=== PATIENT | female | born 1995 | race Caucasian/White ===

== ENCOUNTER 2016-09-03 10:42 | Emergency (ER) | payer OTHER ==
[~2016-09-03] VITALS: Ht 160 cm; Wt 90.0 kg
[2016-09-03 10:43] VITALS: BP 132/76; PULSE 82; RESP 16; TEMP 98.6; O2SAT 98
--- NOTE | 2016-09-03 11:35 | PD ---
HPI Chief Complaint: Related Problem Time Seen by Provider: 11:10 Travel History International Travel<30 days: No Contact w/Intl Traveler<30days: No Traveled to known affect area: No History of Present Illness HPI Patient doesn't complain of spotting. Patient states she is 6 weeks and began noticing some [id number] spotting when she wipes. Patient reports abdominal cramping yesterday but none today. Patient denies any fevers , nausea, vomiting, loss or change in bowel or bladder, or doing anything for this. Patient states she has an appointment with an OB September 20, but has not seen an OB yet. Patient reports she is taking vitamins. [facility] Past Medical History Medical History: Denies Significant Hx ?: LMP: 07/31/16 Social History Alcohol Use: No Tobacco Use: No Substance Use: No Allergies-Medications (Allergen,Severity, Reaction): Coded Allergies: No Known Allergies (Unverified , 09/03/16) Reported Meds & Prescriptions Reported Meds & Active Scripts Active Reported Plus Iron 29-1 mg ( Vit-Iron Carbonyl) 1 Tab Tab 1 Tab PO DAILY Review of Systems Except as stated in HPI: all other systems reviewed are Neg Physical Exam Narrative GENERAL: Well-developed, overly nourished, in no acute distress, and non-ill appearing. SKIN: Focused skin assessment warm and dry. HEAD: Atraumatic. Normocephalic. EYES: Pupils equal and round. EOMI. No scleral icterus. No injection or drainage. ENT: No nasal bleeding or discharge. Mucous membranes pink and moist. NECK: Trachea midline. Supple. No nuclear rigidity. CARDIOVASCULAR: Regular rate and rhythm. No murmur appreciated. RESPIRATORY: No accessory muscle use. No respiratory distress. Clear to auscultation. Breath sounds equal bilaterally. GASTROINTESTINAL: Abdomen soft, non-tender, nondistended. Hepatic and splenic margins not palpable. Normal bowel sounds 4. No pulsatile mass. GENITOURINARY: Normal external genitalia without lesions or erythema. Vaginal vault without blood or drainage. Cervical os was closed without drainage. No cervical motion tenderness. Uterus nontender and nonenlarged. Bilateral adnexa nontender without masses. Exam was performed presence of staffing associateAYLA Saldana at all times. MUSCULOSKELETAL: No obvious deformities. No clubbing. No cyanosis. No edema. Full range of motion. NEUROLOGICAL: Awake and alert. No obvious cranial nerve deficits. Motor grossly within normal limits. Normal speech. PSYCHIATRIC: Appropriate mood and affect; insight and judgment normal. Data Data Last Documented VS Vital Signs Date Time Temp Pulse Resp B/P Pulse Ox O2 Delivery O2 Flow Rate FiO2 09/03/16 10:43 98.6 82 16 132/76 98 Orders Beta Hcg (Quant/Titer) (09/03/16 11:13) Complete Blood Count With Diff (09/03/16 11:13) Basic Metabolic Panel (Bmp) (09/03/16 11:13) Complete Rh (09/03/16 11:13) Urinalysis - C+S If Indicated (09/03/16 11:13) Gc And Chlamydia Pcr (09/03/16 11:40) Wet Prep Profile (09/03/16 11:40) Ed Poc Ultrasound (09/03/16 ) Us Pelvis (Ques Pr/Ect)W Trans (09/03/16 ) Labs Laboratory Tests Test 09/03/16 09/03/16 11:30 11:50 White Blood Count 10.2 TH/MM3 Red Blood Count 5.00 MIL/MM3 Hemoglobin 13.5 GM/DL Hematocrit 39.6 % Mean Corpuscular Volume 79.3 FL Mean Corpuscular Hemoglobin 26.9 PG Mean Corpuscular Hemoglobin 34.0 % Concent Red Cell Distribution Width 16.0 % Platelet Count 295 TH/MM3 Mean Platelet Volume 8.0 FL Neutrophils (%) (Auto) 71.9 % Lymphocytes (%) (Auto) 19.3 % Monocytes (%) (Auto) 6.5 % Eosinophils (%) (Auto) 1.4 % Basophils (%) (Auto) 0.9 % Neutrophils # (Auto) 7.4 TH/MM3 Lymphocytes # (Auto) 2.0 TH/MM3 Monocytes # (Auto) 0.7 TH/MM3 Eosinophils # (Auto) 0.1 TH/MM3 Basophils # (Auto) 0.1 TH/MM3 CBC Comment DIFF FINAL Differential Comment Sodium Level 137 MEQ/L Potassium Level 3.5 MEQ/L Chloride Level 104 MEQ/L Carbon Dioxide Level 24.5 MEQ/L Anion Gap 9 MEQ/L Blood Urea Nitrogen 7 MG/DL Creatinine 0.72 MG/DL Estimat Glomerular Filtration 103 ML/MIN Rate Random Glucose 118 MG/DL Calcium Level 9.1 MG/DL Human Chorionic Gonadotropin, 4344 MIU/ML Quant Blood Type B POSITIVE Rho(D) Type POSITIVE Urine Color YELLOW Urine Turbidity HAZY Urine pH 7.5 Urine Specific [place] 1.024 Urine Protein 30 mg/dL Urine Glucose (UA) 300 mg/dL Urine Ketones NEG mg/dL Urine Occult Blood NEG Urine Nitrite NEG Urine Bilirubin NEG Urine Urobilinogen LESS THAN 2.0 MG/DL Urine Leukocyte Esterase NEG Urine RBC 1 /hpf Urine WBC 1 /hpf Urine Squamous Epithelial 6 /hpf Cells Urine Bacteria OCC /hpf Urine Mucus FEW /lpf Microscopic Urinalysis Comment CULT NOT INDICATED Clue Cells (Wet Prep) NONE SEEN Vaginal Trichomonas (Wet Prep) NONE SEEN Vaginal Yeast (Wet Prep) NONE SEEN Chlamydia trachomatis DNA NOT DETECTED (PCR) Neisseria gonorrhoeae DNA NOT DETECTED (PCR) [facility] Medical Decision Making Medical Screen Exam Complete: Yes Emergency Medical Condition: Yes Interpretation(s) Ultrasound read by the radiologist shows: 1. The examination demonstrates a very early intrauterine gestation. The gestational sac and pole are too small to provide accurate gestational age. The patient will need followup ultrasound to ensure viability. 2. No free fluid is seen within the pelvis. The ovaries are unremarkable in appearance. Differential Diagnosis Ectopic , threatened , UTI, normal menstrual cycle, other Narrative Course Patient presented with vaginal bleeding and lower abdominal pain and the test was positive. Ultrasound was performed and there is evidence of a developing uterine . There is no evidence to suggest ectopic , nor cervicitis, PID or torsion at this time. There was no evidence to support colitis, diverticulitis, obstruction, abdominal or femoral herniation , volvulus, early appendicitis, or hernial incarceration or strangulation at this time. Patient is stable and no clinical evidence of anemia. There is no RH incompatibility. Possibility of a threatened was discussed with the patient. The patient was instructed to follow up with OB within 2-3 days, for repeat blood work and possible repeat ultrasound, and was given contact information. She was given warnings to return if bleeding worsened, passed tissue, felt faint or passed out, fever, worsening pain, inability to tolerate fluids, or as needed. The patient agreed with plan. Patient in no obvious distress upon re-evaluation. All pertinent laboratory/ Radiology result(s) discussed with patient/family. Discussed patient with Dr. Lay, who saw and evaluated the patient and is in agreement with plan of care and disposition. Any questions/concerns in reference to patient diagnosis/ condition discussed and clarified prior to patient's discharge. Reinforced sheer importance of close follow up with patient's primary physician or primary care clinic. Instructed patient to return to ED immediately, if symptoms return/ worsen. Pt showed understanding of above instructions. Further instructions and recommendations were detailed in discharge paperwork. Pt ambulated without difficulty out of ED at discharge. Diagnosis Primary Impression: Spotting affecting in first trimester Patient Instructions: General Instructions, Threatened Miscarriage (ED) Additional Instructions: Follow-up with your OB or return here in 48-72 hours for reevaluation. Continue taking vitamins. Return to the emergency department if symptoms get worse, heavier bleeding, fevers, abdominal pain, or for other concerns.. Disposition: 01 DISCHARGE HOME Condition: Stable Shahid Luciano September 03, 2016 11:35
[2016-09-03 11:49] LABS: AUTOMATED NEUTROPHIL # 7.4 TH/MM3 (1.8-7.7); BASOPHIL # 0.1 TH/MM3 (0-0.2); BASOPHIL % 0.9 % (0.0-2.0); EOSINOPHIL # 0.1 TH/MM3 (0-0.4); EOSINOPHIL % 1.4 % (0.0-4.0); HEMATOCRIT 39.6 % (35.0-46.0); HEMO FLAGS DIFF FINAL; LYMPH % 19.3 % (9.0-44.0); MEAN CELL VOLUME 79.3 FL (80.0-100.0); MEAN CORPUSCULAR HEMOGLOBIN 26.9 PG (27.0-34.0); MONO % 6.5 % (0.0-8.0); NEUT % 71.9 % (16.0-70.0); PLATELET COUNT 295 TH/MM3 (150-450); WHITE BLOOD COUNT 10.2 TH/MM3 (4.0-11.0)
[2016-09-03] MEDS ORDERED: PREN29TA PO (12:05)
[2016-09-03 12:09] LABS: BACTERIA, URINE OCC /hpf; BLOOD, URINE NEG (NEG); COMMENT (UR) CULT NOT INDICATED; CULTURE IF INDICATED CULT NOT INDICATED; GLUCOSE,URINE 300 mg/dL (NEG); KETONE, URINE NEG (NEG); MUCUS URINE FEW /lpf (OCC); NITRITE,URINE NEG (NEG); PH, URINE 7.5 (5.0-8.5); SQUAMOUS EPITHELIAL CELL URINE 6 /hpf (0-5); URINE COLOR YELLOW (YELLW/STRAW)
[2016-09-03 12:10] LABS: BICARBONATE 24.5 MEQ/L (21.0-32.0); POTASSIUM 3.5 MEQ/L (3.5-5.1)
--- NOTE | 2016-09-03 13:32 | PD ---
Physical Exam Date Seen by Provider: September 03, 2016 Time Seen by Provider: 13:30 Narrative 21-year-old female came to the emergency room with spotting. Patient is 6 weeks . She has not had a OB visit yet. She seen by the PA and I'm supervising him. I performed a bedside ultrasound to confirm an intrauterine . Please refer to my procedure note. Based on the equivocal result we will proceed with a formal transvaginal ultrasound to confirm an in utero . Data Data Last Documented VS Vital Signs Date Time Temp Pulse Resp B/P Pulse Ox O2 Delivery O2 Flow Rate FiO2 09/03/16 10:43 98.6 82 16 132/76 98 Orders Beta Hcg (Quant/Titer) (09/03/16 11:13) Complete Blood Count With Diff (09/03/16 11:13) Basic Metabolic Panel (Bmp) (09/03/16 11:13) Complete Rh (09/03/16 11:13) Urinalysis - C+S If Indicated (09/03/16 11:13) Gc And Chlamydia Pcr (09/03/16 11:40) Wet Prep Profile (09/03/16 11:40) Us Pelvis (Ques Pr/Ect)W Trans (09/03/16 ) Labs Laboratory Tests Test 09/03/16 09/03/16 11:30 11:50 White Blood Count 10.2 TH/MM3 Red Blood Count 5.00 MIL/MM3 Hemoglobin 13.5 GM/DL Hematocrit 39.6 % Mean Corpuscular Volume 79.3 FL Mean Corpuscular Hemoglobin 26.9 PG Mean Corpuscular Hemoglobin 34.0 % Concent Red Cell Distribution Width 16.0 % Platelet Count 295 TH/MM3 Mean Platelet Volume 8.0 FL Neutrophils (%) (Auto) 71.9 % Lymphocytes (%) (Auto) 19.3 % Monocytes (%) (Auto) 6.5 % Eosinophils (%) (Auto) 1.4 % Basophils (%) (Auto) 0.9 % Neutrophils # (Auto) 7.4 TH/MM3 Lymphocytes # (Auto) 2.0 TH/MM3 Monocytes # (Auto) 0.7 TH/MM3 Eosinophils # (Auto) 0.1 TH/MM3 Basophils # (Auto) 0.1 TH/MM3 CBC Comment DIFF FINAL Differential Comment Sodium Level 137 MEQ/L Potassium Level 3.5 MEQ/L Chloride Level 104 MEQ/L Carbon Dioxide Level 24.5 MEQ/L Anion Gap 9 MEQ/L Blood Urea Nitrogen 7 MG/DL Creatinine 0.72 MG/DL Estimat Glomerular Filtration 103 ML/MIN Rate Random Glucose 118 MG/DL Calcium Level 9.1 MG/DL Human Chorionic Gonadotropin, 4344 MIU/ML Quant Blood Type B POSITIVE Rho(D) Type POSITIVE Urine Color YELLOW Urine Turbidity HAZY Urine pH 7.5 Urine Specific [place] 1.024 Urine Protein 30 mg/dL Urine Glucose (UA) 300 mg/dL Urine Ketones NEG mg/dL Urine Occult Blood NEG Urine Nitrite NEG Urine Bilirubin NEG Urine Urobilinogen LESS THAN 2.0 MG/DL Urine Leukocyte Esterase NEG Urine RBC 1 /hpf Urine WBC 1 /hpf Urine Squamous Epithelial 6 /hpf Cells Urine Bacteria OCC /hpf Urine Mucus FEW /lpf Microscopic Urinalysis Comment CULT NOT INDICATED Clue Cells (Wet Prep) NONE SEEN Vaginal Trichomonas (Wet Prep) NONE SEEN Vaginal Yeast (Wet Prep) NONE SEEN Chlamydia trachomatis DNA NOT DETECTED (PCR) Neisseria gonorrhoeae DNA NOT DETECTED (PCR) MDM Supervised Visit with SHAN: Yes Procedures Procedure Narrative Emergency Department Pelvic ultrasound was performed with patient consent. The curvilinear probe was used in the transverse and sagittal views within the suprapubic region revealing questionable gestational sac intrauterine. No pole was visible. Prashanth Lay MD September 03, 2016 13:32
[2016-09-03 14:13] LABS: CHLAMYDIA PCR NOT DETECTED (NOT DETECT); NEISSERIA PCR NOT DETECTED (NOT DETECT)
--- NOTE | 2016-09-03 15:14 | RADRPT ---
EXAM DATE/TIME: 09/03/2016 14:13 [place] COMPARISON: No previous studies available for comparison. INDICATIONS : Vaginal spotting. LAB(S): Beta-hC MEDICAL HISTORY : . Vaginal spotting. SURGICAL HISTORY : None. ENCOUNTER: Initial ACUITY: 1 day PAIN SCORE: 0/10 LOCATION: Bilateral pelvis MEASUREMENTS: RIGHT OVARY: 3.7 x 3.1 x 2.0 cm UTERUS: 8.0 x 4.4 x 4.0 cm ENDOMETRIAL STRIPE: 9 mm LEFT OVARY: 3.6 x 2.4 x 2.4 cm FREE FLUID: No FINDINGS: UTERUS: The examination demonstrates a gestational sac within the endometrial cavity. There is a pole e vident as well. The overall size of the gestational sac and pole are too small to provide gesta tional age. RIGHT OVARY: Ovary contains no mass or significant cystic lesion. LEFT OVARY: Ovary contains no mass or significant cystic lesion. MISCELLANEOUS: No free fluid. CONCLUSION: 1. The examination demonstrates a very early intrauterine gestation. The gestational sac and po le are too small to provide accurate gestational age. The patient will need followup ultrasound to en sure viability. 2. No free fluid is seen within the pelvis. The ovaries are unremarkable in appearance. Azeem Kendrikc MD on September 03, 2016 at 15:08 Board Certified Radiologist. This report was verified electronically.
== END 2016-09-03 15:59 | disposition home or self-care (01) ==
LOC: NEPD 10:42
DX: O26.851 Spotting complicating pregnancy, first trimester (principal); Z3A.01 Less than 8 weeks gestation of pregnancy
CPT/HCPCS: 76700; 76817; 80048; 81001; 84702; 85025; 86901; 87210; 87491; 87591

== ENCOUNTER 2016-09-07 16:05 | Emergency (ER) | payer OTHER ==
[~2016-09-07 16:05] MED LIST: PREN29TA PO
[2016-09-07 16:06] VITALS: BP 144/78; PULSE 97; RESP 15; TEMP 98.6; O2SAT 99
--- NOTE | 2016-09-07 16:30 | PD ---
HPI Chief Complaint: Related Problem Time Seen by Provider: 16:24 Travel History International Travel<30 days: No Contact w/Intl Traveler<30days: No Traveled to known affect area: No History of Present Illness HPI Patient is a 21-year-old female presents the emergency department for repeat beta Quant. Patient was seen here in our emergency department 4 days for spotting during her first trimester. She had a at that time that showed a intrauterine but no evidence of heart rate, likely because she was too early. At that time her beta Quant was about 4300. She was instructed to come to the emergency department in 48 hours for repeat beta Quant and presents to the emergency department 4 days later. In the interim she has not had any abdominal pain, spotting, cramping, etc. PFSH Past Medical History ?: : 1 Para: 0 Social History Alcohol Use: No Tobacco Use: No Substance Use: No Allergies-Medications (Allergen,Severity, Reaction): Coded Allergies: No Known Allergies (Unverified , 09/03/16) Reported Meds & Prescriptions Reported Meds & Active Scripts Active Reported Plus Iron 29-1 mg ( Vit-Iron Carbonyl) 1 Tab Tab 1 Tab PO DAILY Review of Systems Except as stated in HPI: all other systems reviewed are Neg Physical Exam Narrative GENERAL: Well-appearing female in no acute distress SKIN: Focused skin assessment warm/dry. HEAD: Normocephalic. EYES: No scleral icterus. No injection or drainage. ENT: Mucous membranes pink and moist. NECK: Supple CARDIOVASCULAR: Regular rate and rhythm. RESPIRATORY: No accessory muscle use. GASTROINTESTINAL: Obese NEUROLOGICAL: Awake and alert. Normal speech. PSYCHIATRIC: Appropriate mood and affect; insight and judgment normal. Data Data Last Documented VS Vital Signs Date Time Temp Pulse Resp B/P Pulse Ox O2 Delivery O2 Flow Rate FiO2 09/07/16 16:06 98.6 97 15 144/78 99 Orders Beta Hcg (Quant/Titer) (09/07/16 16:25) [facility] Medical Decision Making Medical Screen Exam Complete: Yes Emergency Medical Condition: Yes Medical Record Reviewed: Yes Differential Diagnosis 21-year-old female here with complaint of repeat beta Quant. Differential includes , threatened AB, missed AB, inevitable AB. Ectopic excluded given treat his ultrasound with IUP. Narrative Course Repeat beta Quant was ordered. Results remain pending at the time this dictation. Patient signed out to [facility] provider waiting results of same for hopeful disposition home. Haylie Craig MD September 07, 2016 16:30
[2016-09-07 17:30] LABS: BETA HCG QUANT 11160 MIU/ML (0-5)
--- NOTE | 2016-09-07 18:01 | PD ---
Physical Exam Date Seen by Provider: September 07, 2016 Narrative Care was assumed from Dr. Craig at 5 PM pending her quantitative hCG. Data Data Last Documented VS Vital Signs Date Time Temp Pulse Resp B/P Pulse Ox O2 Delivery O2 Flow Rate FiO2 09/07/16 16:06 98.6 97 15 144/78 99 Orders Beta Hcg (Quant/Titer) (09/07/16 16:25) Labs Laboratory Tests Test 09/07/16 16:20 Human Chorionic Gonadotropin, 51243 MIU/ML Quant MDM Supervised Visit with SHAN: No Narrative Course Laboratory Tests Test 09/07/16 16:20 Human Chorionic Gonadotropin, 47752 MIU/ML Quant Her previous quantitative hCG was 4344. Diagnosis Primary Impression: Spotting affecting in first trimester Patient Instructions: First Trimester (ED), General Instructions Additional Instruction: Follow-up with your [employer] TECHNICIAN as soon as possible. HCG 09/07=11,160. HCG 09/03=4,344. Disposition: 01 DISCHARGE HOME Condition: Stable Alissa Butts MD September 07, 2016 18:01
== END 2016-09-07 18:06 | disposition home or self-care (01) ==
LOC: NEPD 16:05
DX: O26.851 Spotting complicating pregnancy, first trimester (principal)
CPT/HCPCS: 84702; 99283